=== PATIENT | female | born 1960 | race Caucasian/White ===

== ENCOUNTER → 2017-01-08 | Outpatient (CLI) | payer MEDICAID | LOC: LBETH 01-07 12:54 | DX: Z53.8 Procedure and treatment not carried out for other reasons (principal); Z79.899 Other long term (current) drug therapy; G40.909 Epilepsy, unspecified, not intractable, without status epilepticus | CPT/HCPCS: 80299 ==

== ENCOUNTER → 2017-07-30 | Outpatient (CLI) | payer MEDICAID | END | disposition disaster alternative care site (69) | LOC: GBCOE 13:33 | DX: Z12.31 Encounter for screening mammogram for malignant neoplasm of breast (principal) | CPT/HCPCS: G0202 ==